=== PATIENT | male | born 1985 | race Caucasian/White ===

== ENCOUNTER 2019-02-14 14:03 | Emergency (ER) | payer OTHER ==
[2019-02-14] MEDS ORDERED: Ketorolac INJ* 30 MG/ML 1 ML VIAL IM ONE (14:40)
[2019-02-14] MEDS ORDERED: Cyclobenzaprine TAB* 10 MG PO ONE (14:40)
--- NOTE | 2019-02-14 15:23 | ED ---
Back Pain - HPI Summary HPI Summary: 33 year old male presents with right leg pain for the past couple months. He states that it started in his buttocks and then radiates down his thigh. Denies any swelling to the area. He admits to some back pain. Has had back issues for 4 years. States pain is worse when lying. No numbness tingling. No weakness. No loss of bowel or bladder. No saddle anesthesia. No fevers. No urinary symptoms. He states that he takes ibuprofen for the pain occasionally. He says been trying heat and stretching. - History of Current Complaint Chief Complaint: EDBackInjuryPain Stated Complaint: HIP/LEG/AND BACK PAIN PER PT Time Seen by Provider: 02/14/19 14:19 Pain Intensity: 9 - Allergies/Home Medications Allergies/Adverse Reactions: Allergies Allergy/AdvReac Type Severity Reaction Status Date / Time No Known Allergies Allergy Verified 02/14/19 14:09 PMH/Surg Hx/FS Hx/Imm Hx Endocrine/Hematology History: Denies: Hx Anticoagulant Therapy Respiratory History: Denies: Hx Asthma Infectious Disease History: No Infectious Disease History: Denies: Traveled Outside the [place] in Last 30 Days - Family History Known Family History: Positive: Non-Contributory - Social History Alcohol Use: Occasionally Smoking Status (MU): Never Smoked Tobacco Review of Systems Negative: Fever Negative: Chest Pain Negative: Shortness Of Breath Positive: Myalgia - back pain and right leg pain All Other Systems Reviewed And Are Negative: Yes Physical Exam Triage Information Reviewed: Yes Vital Signs On Initial Exam: Initial Vitals Temp Pulse Resp BP Pulse Ox 98.4 F 69 18 161/84 100 02/14/19 14:05 02/14/19 14:05 02/14/19 14:05 02/14/19 14:05 02/14/19 14:05 Vital Signs Reviewed: Yes Appearance: Positive: Well-Appearing Skin: Positive: Warm, Dry Head/Face: Positive: Normal Head/Face Inspection Eyes: Positive: Normal, Conjunctiva Clear ENT: Positive: Pharynx normal Respiratory/Lung Sounds: Positive: Clear to Auscultation, Breath Sounds Present Cardiovascular: Positive: Normal, RRR Musculoskeletal: Positive: Strength/ROM Intact - back with pain, Other - tenderness SI joint right, no midline tnederness, good pulses, sensation grossly intact, pos GUANACO test, neg SLR Neurological: Positive: Normal Psychiatric: Positive: Normal Procedures - Sedation Patient Received Moderate/Deep Sedation with Procedure: No Diagnostics - Vital Signs Vital Signs Temp Pulse Resp BP Pulse Ox 02/14/19 14:05 98.4 F 69 18 161/84 100 - Laboratory Lab Statement: Any lab studies that have been ordered have been reviewed, and results considered in the medical decision making process. Back Pain Course/Dx - Course Course Of Treatment: 33 year old male presents with right leg pain for the past couple months. He states that it started in his buttocks and then radiates down his thigh. Denies any swelling to the area. He admits to some back pain. Has had back issues for 4 years. States pain is worse when lying. No numbness tingling. No weakness. No loss of bowel or bladder. No saddle anesthesia. No fevers. No urinary symptoms. He states that he takes ibuprofen for the pain occasionally. He says been trying heat and stretching. On exam tenderness over SI joint. Negative straight leg raise. neurovascular Intact. X-rays normal. discussed patient should est care with primary to get an MRI in future if indicated. will try a muscle relaxer. Patient understand and agrees with plan. - Diagnoses Differential Diagnosis/HQI/PQRI: Positive: Fracture, Strain, Sprain Provider Diagnoses: Right leg pain Discharge ED - Sign-Out/Discharge Documenting (check all that apply): Patient Departure - Discharge Plan Condition: Good Disposition: HOME Prescriptions: Methocarbamol TAB* [Robaxin 500 MG TAB*] 500 mg PO TID PRN #[id number] tab PRN Reason: Pain - Moderate Patient Education Materials: Sciatica (ED) Referrals: [facility] [Outside] [facility] [Outside] Chelly Johnston MD [Medical Doctor] - Additional Instructions: try robaxain at night, use up to three times a day ice/heat area, move as much as possible establish care with primary a referral was also given for neurosurgery Return to ED if develop any new or worsening symptoms - Billing Disposition and Condition Condition: GOOD Disposition: Home
[2019-02-14 16:13] VITALS: BP 122/87
== END 2019-02-14 16:08 | disposition home or self-care (01) ==
LOC: ED 14:03
DX: M79.604 Pain in right leg (principal); M51.36 Other intervertebral disc degeneration, lumbar region
CPT/HCPCS: 72110; 96372; 99281; J1885